=== PATIENT | male | born 1965 | race Caucasian/White ===

== ENCOUNTER 2020-03-17 00:27 | Observation (INO) | payer OTHER ==
[2020-03-17 00:59] LABS: #Monocytes 0.6 thou/uL (0.11-0.59); #Neutrophils 8.2 thou/uL (1.40-6.50); %Basophils 0.3 % (0.0-1.0); %Eosinophils 0.1 % (0.0-10.0); %Lymphocytes 10.4 % (21.0-51.0); %Monocytes 6.1 % (0.0-10.0); Hemoglobin 15.6 g/dL (14.0-18.0); Mean Corpuscular HGB CONC 32.9 g/dL (32.0-36.0); Mean Corpuscular Hemoglobin 29.7 pg (27.0-31.0); Mean Corpuscular Volume 90.5 fL (78.0-98.0); Mean Platelet Volume 7.2 fL (7.4-10.4); Platelet Count 191 thou/uL (130-400); RBC Distribution Width 12.6 % (11.5-14.5); Red Blood Cell (RBC) Count 5.23 mill/uL (4.70-6.10); White Blood Cell (WBC) Count 9.8 thou/uL (4.8-10.8)
[2020-03-17 01:02] LABS: Bilirubin Negative (Negative); Blood, Urine Negative (Negative); Clarity Clear (Clear); Glucose, Urine (Dipstick) Normal (Negative); Ketone, Urine Trace mg/dL (Negative); Leukocyte Negative Leu/uL (Negative); Nitrite Negative (Negative); Protein, Urine (Dipstick) Negative (Neg-Trace); Specific Gravity, Urine 1.024 (1.002-1.036); Urobilinogen Normal mg/dL (Less than 2); pH, Urine 6.5 (5.0-9.0)
[2020-03-17 01:21] LABS: ALT (SGPT) 17 U/L (8-55); AST (SGOT) 16 U/L (5-34); Albumin 4.6 g/dL (3.5-5.0); Alkaline Phosphatase 52 U/L (40-110); Anion Gap 14 mmol/L (10-20); BUN (Urea Nitrogen) 14 mg/dL (8.4-25.7); Bilirubin, Total 0.7 mg/dL (0.2-1.2); Calc. Creatinine Clearance 0 mL/min (70-130); Calcium 9.7 mg/dL (7.8-10.44); Carbon Dioxide 28 mmol/L (22-29); Chloride 102 mmol/L (98-107); Estimated GFR-MDRD 64; Globulin 2.7 g/dL (2.4-3.5); Glucose 120 mg/dL (70-105); Lipase 25 U/L (8-78); Potassium 4.2 mmol/L (3.5-5.1); Protein, Total 7.3 g/dL (6.0-8.3); Sodium 140 mmol/L (136-145)
[2020-03-17] MEDS ORDERED: Morphine 4 MG/ML VIAL ONE (01:30)
[2020-03-17] MEDS ORDERED: Ondansetron PF 4 MG/2 ML Vial ONE ×2 (01:30→10:14)
[2020-03-17] MEDS ORDERED: Piperacillin/Tazobactam 4.5 GM VIAL ONE (02:00)
[2020-03-17] MEDS ORDERED: Acetaminophen 325 MG TAB PO PRN (03:11)
[2020-03-17] MEDS ORDERED: Sodium Chloride 0.9% 1,000 ML IV SCH ×2 (03:15→06:45)
[2020-03-17 03:17] VITALS: BMI 25.1
[2020-03-17] MEDS ORDERED: Morphine 2 MG/ML VIAL SLOW IVP PRN (06:31)
[2020-03-17] MEDS ORDERED: Morphine 4 MG/ML VIAL SLOW IVP PRN (06:32)
[2020-03-17] MEDS ORDERED: Ketorolac Tromethamine 30 MG/ML VIAL IVP SCH (06:45)
[2020-03-17] MEDS ORDERED: Piperacillin/Tazobactam 3.375 GM in Sodium Chloride 0.9% 100 ML IVPB SCH (08:00)
--- NOTE | 2020-03-17 08:11 | CT ---
PRELIMINARY REPORT/[facility]/EMERGENCY AFTER HOURS PROCEDURE Receipt of this report by the clinical staff was confirmed with Pedro Winkler MD by Maxime Voss on Mar 17, 2020 01:38:00 CDT. Addendum electronically signed by Leticia Voss on March 17, 2020 1:37:35 AM CDT EXAM: CT Abdomen and Pelvis with Intravenous Contrast CLINICAL HISTORY: 54M ABDOMINAL PAIN THAT STARTED AROUND 4PM THIS AFTERNOON. PATIENT IS WORRIED THAT HE MIGHT HAVE APPE NDICITIS. TECHNIQUE: Axial computed tomography images of the abdomen and pelvis with intravenous contrast. CONTRAST: With; ISOVUE 370,100mL COMPARISON: None provided. FINDINGS: LUNG BASES: No basilar airspace consolidation or pleural effusion. LIVER: Unremarkable. GALLBLADDER AND BILE DUCTS: Unremarkable. No calcified stone. No ductal dilation. PANCREAS: Unremarkable. SPLEEN: Unremarkable. ADRENAL GLANDS: Unremarkable. KIDNEYS, URETERS, AND BLADDER: Unremarkable. No hydronephrosis or nephrolithiasis. No ureteral or bladder calculi. STOMACH AND BOWEL: No obstruction. No wall thickening. No CT evidence of colitis or acute diverticulitis. APPENDIX: The appendix is mildly enlarged measuring about 8 mm in diameter with subtle soft tissue stranding, f indings suggestive of early appendicitis. PERITONEUM: No free fluid. No free air. LYMPH NODES: No lymphadenopathy. REPRODUCTIVE: Unremarkable as visualized. VASCULATURE: No aortic aneurysm. BONES: No fracture or suspicious osseous abnormality. ABDOMINAL WALL AND SOFT TISSUES: Unremarkable. IMPRESSION: The appendix is mildly enlarged measuring about 8 mm in diameter with subtle soft tissue stranding, f indings suggestive of early appendicitis. ELECTRONICALLY SIGNED BY: Morenita Woods MD Mar 17, 2020 1:33:57 AM CDT This report is intended for review by the ordering physician only, in accordance of law. If you recei ve this report in error, please call [facility] at [phone]. FINAL REPORT EMERGENT AFTER HOURS CT ABDOMEN AND PELVIS WITH IV CONTRAST: HISTORY: Right-sided abdominal pain. COMPARISON: None. IMPRESSION: 1. The appendix is mildly dilated measuring 8 mm with mild enhancement and slight thickening of the w alls of the appendix with suggestion of subtle periappendiceal inflammatory changes. Findings may be related to early acute appendicitis. 2. Moderate amount of retained fecal material in the ascending and transverse colon. 3. Findings are in agreement with preliminary report by [facility]. Transcribed Date/Time: 03/17/2020 9:08 AM
[2020-03-17] MEDS ORDERED: Fentanyl 100 MCG/2 ML VIAL ONE ×2 (08:55→10:30)
[2020-03-17] MEDS ORDERED: Bupivacaine PF 0.5% 30 ML VIAL ONE (08:57)
[2020-03-17] MEDS ORDERED: Lidocaine 1% w/Epinephrine 1:100K 20 ML VIAL ONE (08:57)
[2020-03-17] MEDS ORDERED: Midazolam HCl 2 mg/2 ml Vial ONE (09:15)
--- NOTE | 2020-03-17 09:29 | HP ---
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 He developed anorexia, slight nausea, but no vomiting or fever. He presented to the emergency room. White count was normal. CAT scan confirmed appendicitis. ALLERGIES: NONE. SOCIAL HISTORY: Tobacco, none. Alcohol socially. MEDICATIONS: None routinely. PAST SURGICAL HISTORY: Vasectomy and vasectomy reversal, tonsils. REVIEW OF SYSTEMS: Ten-point noncontributory. FAMILY HISTORY: Noncontributory. PHYSICAL EXAMINATION: VITAL SIGNS: Blood pressure 135/80, pulse 85, respirations 18, temperature 99.3 degrees. 81 kg. HEAD, EARS, EYES, NOSE, AND THROAT: Unremarkable. LUNGS: Clear to auscultation. CARDIAC: Regular rate and rhythm without murmur or gallop. ABDOMEN: Soft, tenderness in the right lower quadrant without guarding or rebound. EXTREMITIES: Unremarkable. No ankle edema. NEUROLOGICAL: Intact. No lymphadenopathy in axilla, groins, or neck. ASSESSMENT AND PLAN: Acute appendicitis. We recommended the laparoscopic video appendectomy. Risks of infection, bleeding, visceral injury, open procedure, and reoperation were discussed. Questions were answered. Job ID: [id number]
[2020-03-17] MEDS ORDERED: Glycopyrrolate 0.2 MG/ML 5 ML SYRINGE ONE (10:14)
[2020-03-17] MEDS ORDERED: Rocuronium Bromide 10 MG/ML (10ML VIAL) ONE (10:14)
[2020-03-17] MEDS ORDERED: PROPOFOL 200 MG/20 ML VIAL ONE (10:14)
[2020-03-17] MEDS ORDERED: Ketorolac Tromethamine 30 MG/ML VIAL ONE (10:14)
[2020-03-17] MEDS ORDERED: Ibuprofen 600 MG TAB PO PRN (10:20)
[2020-03-17] MEDS ORDERED: traMADol HCl 50 MG TAB PO PRN ×2 (10:20)
[2020-03-17] MEDS ORDERED: Acetaminophen 500 MG TAB PO PRN (10:20)
--- NOTE | 2020-03-17 10:33 | OP ---
DATE OF PROCEDURE: 03/17/2020 PREOPERATIVE DIAGNOSIS: Acute appendicitis. POSTOPERATIVE DIAGNOSIS: Acute appendicitis. PROCEDURE PERFORMED: Laparoscopic video appendectomy. ANESTHESIA: General, local 0.5% Marcaine 30 mL, mixed with 1% Xylocaine with epinephrine 20 mL. FINDINGS: Acute appendicitis. DESCRIPTION OF PROCEDURE: The patient was taken to the operating room, where under general anesthesia, abdomen was clipped of hair, prepared with ChloraPrep and draped in routine fashion. Oliver catheter was placed at the beginning of the procedure, removed in the end. Abdomen was prepared with ChloraPrep and draped in routine fashion. Local anesthetic was infiltrated in the skin and subcutaneous tissue about each port site. A vertical incision was made. Pneumoperitoneum to 15 mmHg was obtained with a Veress needle, replaced with a 5 port, video laparoscope inserted. Right lateral subcostal incision was made and a 5 port placed. Suprapubic incision was made and a 12 port placed. Appendix acutely inflamed and mesoappendix was taken down with the LigaSure. The stump of the appendix was divided with Endo-RAY blue load stapler. Stapled cecal stump hemostasis was gained with clips. Appendix was removed, submitted to Pathology. Good hemostasis was noted. Irrigant and pneumoperitoneum evacuated. All instruments were removed. All skin incisions were approximated with interrupted subdermal 4-0 Monocryl after suprapubic fascia was approximated with 0 Vicryl. Dermabond applied. Job ID: [id number]
--- NOTE | 2020-03-17 10:43 | DIS ---
DATE OF ADMISSION: 03/17/2020 DATE OF DISCHARGE: 03/17/2020 DISCHARGE DIAGNOSIS: Appendicitis. PROCEDURE: Laparoscopic video appendectomy. CAT scan in the emergency room. HISTORY: A 54-year-old male presents with a history and exam consistent with appendicitis. Admitted at 2 o'clock in the morning. Given intravenous fluids and antibiotics. Underwent laparoscopic video appendectomy after which he convalesced. Tolerated his diet. Discharged to home. Diet and activity as tolerated. Follow up in my office in 2 to 3 weeks. Tylenol, Advil as needed for pain, Ultram if necessary no activity restriction. Job ID: [id number]
[2020-03-17] MEDS ORDERED: Iopamidol-370 76% 500 ML 1 ML ONE (10:55)
[2020-03-17 11:12] VITALS: TEMP 97.5
[2020-03-17 13:23] VITALS: BP 106/66
[2020-03-17 14:32] LABS: SARS-CoV-2 MS2 Positive; SARS-CoV-2 N Gene Positive; SARS-CoV-2 S Gene Positive; SARS-CoV-2 by NAA DETECTED (NotDetected); SARS-CoV-2 orf1ab Positive
== END 2020-03-17 13:30 | disposition home or self-care (01) ==
LOC: ERS 00:27 → SURG A 02:23
PROVIDERS: ADMIT Specialist; ATTEND Specialist
PROC: 0DTJ4ZZ Resection of Appendix, Percutaneous Endoscopic Approach (ICD-10-PCS; principal; 2020-03-17)
DX: K35.80 Unspecified acute appendicitis (principal)
CPT/HCPCS: 74177; 80053; 81003; 83690; 85025; 87635; 88304; 93005; 96361; 96365; 96375; 96376; G0378; J1885; J2250; J2270; J2405; J2543; J2704; J3010; J3490; Q9967; S0020; U0003

== ENCOUNTER 2020-05-15 17:00 | Outpatient (CLI) | payer OTHER | END 2020-05-15 17:01 | disposition home or self-care (01) | LOC: SLEEPLAB 17:00 | PROVIDERS: ATTEND Family Medicine | DX: G47.33 Obstructive sleep apnea (adult) (pediatric) (principal); R53.83 Other fatigue; R06.83 Snoring; G47.00 Insomnia, unspecified | CPT/HCPCS: 95806 ==

== ENCOUNTER 2020-06-25 19:30 | Outpatient (CLI) | payer OTHER | END 2020-06-25 19:31 | disposition home or self-care (01) | LOC: SLEEPLAB 19:30 | PROVIDERS: ATTEND Family Medicine | DX: G47.33 Obstructive sleep apnea (adult) (pediatric) (principal); R53.83 Other fatigue; R06.83 Snoring; G47.10 Hypersomnia, unspecified; E66.9 Obesity, unspecified; Z68.26 Body mass index [BMI] 26.0-26.9, adult | CPT/HCPCS: 95811 ==

== ENCOUNTER 2025-03-11 13:00 | Inpatient (IN) | payer OTHER ==
[2025-03-11 13:25] VITALS: BMI 24.8
[2025-03-12] MEDS ORDERED: CEFAZOLIN 2 GM VIAL ONE (10:14)
[2025-03-12] MEDS ORDERED: Famotidine/PF 20 mg/2ml Vial ONE (10:57)
[2025-03-12] MEDS ORDERED: fentaNYL PF 100 MCG/2 ML SYRINGE ONE ×2 (10:59→12:23)
[2025-03-12] MEDS ORDERED: PROPOFOL 20 ML ONE (11:00)
[2025-03-12] MEDS ORDERED: Rocuronium Bromide 10 MG/ML (10ML VIAL) ONE (11:02)
[2025-03-12] MEDS ORDERED: Ondansetron PF 4 MG/2 ML Vial ONE (11:16)
[2025-03-12] MEDS ORDERED: Ketorolac Tromethamine 30 MG (1 mL) VIAL ONE (11:16)
[2025-03-12] MEDS ORDERED: PHENYLEPHRINE-NS 100 MCG/ML 10 ML SYRINGE ONE (11:50)
[2025-03-12] MEDS ORDERED: SUGAMMADEX SODIUM 200 MG/2 ML VIAL ONE (11:51)
[2025-03-12] MEDS ORDERED: HYDROmorphone 0.5 MG/0.5 ML SYR SLOW IVP PRN (11:52)
[2025-03-12] MEDS ORDERED: HYDROmorphone 2 MG/ML VIAL ONE (12:23)
[2025-03-12] MEDS ORDERED: Ondansetron PF 4 MG/2 ML Vial IVP PRN (14:30)
[2025-03-12] MEDS ORDERED: HYDROcodone/Acetaminophen 5/325 mg Tablet PO PRN (14:30)
[2025-03-12 14:52] LABS: #Basophils Less than 0.03 10x3/uL (0.0-0.2); #Eosinophils Less than 0.03 10x3/uL (0.0-0.7); #Monocytes 0.11 10x3/uL (0.11-0.59); #Neutrophils 9.84 10x3/uL (1.40-6.50); %Basophils 0.1 % (0.0-1.0); %Eosinophils 0.0 % (0.0-10.0); %Lymphocytes 4.3 % (21.0-51.0); %Monocytes 1.1 % (0.0-10.0); %Neutrophils 94.1 % (42.0-75.0); Hematocrit 40.6 % (42.0-52.0); Hemoglobin 13.7 g/dL (14.0-18.0); Mean Corpuscular Hemoglobin 29.7 pg (27.0-31.0); Mean Corpuscular Volume 87.9 fL (78.0-98.0); Platelet Count 173 10x3/uL (130-400); Red Blood Cell (RBC) Count 4.62 mill/uL (4.70-6.10); White Blood Cell (WBC) Count 10.45 10x3/uL (4.8-10.8)
[2025-03-12 15:04] LABS: Anion Gap 11 mmol/L (10-20); BUN (Urea Nitrogen) 14 mg/dL (8.4-25.7); Calc. Creatinine Clearance 121 mL/min (70-130); Calcium 8.7 mg/dL (7.8-10.44); Carbon Dioxide 24 mmol/L (22-29); Chloride 109 mmol/L (98-107); Glucose 144 mg/dL (70-105); Potassium 4.0 mmol/L (3.5-5.1); Sodium 140 mmol/L (136-145)
[2025-03-12] MEDS: HYDROcodone/Acetaminophen 5/325 mg Tablet PO PRN (22:06)
[2025-03-13] MEDS: Acetaminophen 325 MG TAB PO SCH (02:46)
[2025-03-13 04:58] VITALS: BP 122/77; TEMP 97.7
== END 2025-03-13 10:45 | disposition home or self-care (01) | DRG 517 ==
LOC: SURG A 03-12 08:40 → PCU 03-12 14:27
PROVIDERS: ADMIT Student in an Organized Health Care Education/Training Program; ATTEND Student in an Organized Health Care Education/Training Program
PROC: 0PH004Z Insertion of Internal Fixation Device into Sternum, Open Approach (ICD-10-PCS; principal; 2025-03-12)
DX: S22.20XA Unspecified fracture of sternum, initial encounter for closed fracture (principal); I10 Essential (primary) hypertension; G47.30 Sleep apnea, unspecified; Z79.899 Other long term (current) drug therapy
CPT/HCPCS: 36415; 71045; 80048; 85025; J0169; J0665; J1100; J1171; J1308; J1885; J2405; J2704

== ENCOUNTER 2025-03-11 13:14 | Outpatient (CLI) | payer OTHER ==
[2025-03-11 14:29] LABS: #Basophils Less than 0.03 10x3/uL (0.0-0.2); #Eosinophils 0.06 10x3/uL (0.0-0.7); #Monocytes 0.57 10x3/uL (0.11-0.59); #Neutrophils 4.36 10x3/uL (1.40-6.50); %Basophils 0.1 % (0.0-1.0); %Eosinophils 0.8 % (0.0-10.0); %Lymphocytes 29.6 % (21.0-51.0); %Monocytes 8.0 % (0.0-10.0); %Neutrophils 61.2 % (42.0-75.0); Hematocrit 43.3 % (42.0-52.0); Hemoglobin 14.6 g/dL (14.0-18.0); Mean Corpuscular Hemoglobin 29.3 pg (27.0-31.0); Mean Corpuscular Volume 86.9 fL (78.0-98.0); Platelet Count 203 10x3/uL (130-400); Red Blood Cell (RBC) Count 4.98 mill/uL (4.70-6.10); White Blood Cell (WBC) Count 7.13 10x3/uL (4.8-10.8)
[2025-03-11 14:42] LABS: Anion Gap 13 mmol/L (10-20); BUN (Urea Nitrogen) 19 mg/dL (8.4-25.7); Calc. Creatinine Clearance 0 mL/min (70-130); Calcium 9.7 mg/dL (7.8-10.44); Carbon Dioxide 25 mmol/L (22-29); Chloride 107 mmol/L (98-107); Glucose 96 mg/dL (70-105); Potassium 4.0 mmol/L (3.5-5.1); Sodium 141 mmol/L (136-145)
== END 2025-03-11 13:15 | disposition home or self-care (01) ==
LOC: LABBT 13:14
PROVIDERS: ATTEND Student in an Organized Health Care Education/Training Program
DX: Z01.818 Encounter for other preprocedural examination (principal); S22.20XA Unspecified fracture of sternum, initial encounter for closed fracture
CPT/HCPCS: 71046; 80048; 85025; 86850; 86900; 86901

== ENCOUNTER 2025-03-26 13:10 | Outpatient (CLI) | payer OTHER | END 2025-03-26 13:11 | disposition home or self-care (01) | LOC: RAD 13:10 | PROVIDERS: ATTEND Student in an Organized Health Care Education/Training Program | DX: S22.20XA Unspecified fracture of sternum, initial encounter for closed fracture (principal) | CPT/HCPCS: 71046 ==

== ENCOUNTER 2025-04-23 09:53 | Outpatient (CLI) | payer OTHER | END 2025-04-23 09:54 | disposition home or self-care (01) | LOC: CT 09:53 | PROVIDERS: ATTEND Student in an Organized Health Care Education/Training Program | DX: S22.20XA Unspecified fracture of sternum, initial encounter for closed fracture (principal); Z98.890 Other specified postprocedural states | CPT/HCPCS: 71250 ==